=== PATIENT | male | born 1980 | race Caucasian/White ===

== ENCOUNTER 2018-05-03 15:59 | Emergency (ER) | payer OTHER ==
[~2018-05-03] VITALS: Ht 170.2 cm; Wt 81.7 kg
[2018-05-03] MEDS ORDERED: DOXYCYCLINE 10100 M1 PO (16:49)
[2018-05-03] MEDS ORDERED: CLEOCIN HCL300 MG PO (17:12)
[2018-05-03 17:19] VITALS: BP 121/83
== END 2018-05-03 17:19 | disposition home or self-care (01) ==
LOC: M.ERS 15:59
DX: S61.431A Puncture wound without foreign body of right hand, initial encounter (principal); S66.39 Other injury of extensor muscle, fascia and tendon of other and unspecified finger at wrist and hand level; Z88.1 Allergy status to other antibiotic agents; Z88.0 Allergy status to penicillin; Z88.2 Allergy status to sulfonamides; W25.XXXA Contact with sharp glass, initial encounter; Y93.89 Activity, other specified; Y92.89 Other specified places as the place of occurrence of the external cause; Y99.8 Other external cause status